=== PATIENT | female | born 1995 | race Caucasian/White ===

== ENCOUNTER 2019-01-12 01:50 | Emergency (ER) | payer OTHER ==
[2019-01-12 01:56] VITALS: BP 126/88; PULSE 125; TEMP 98.5; BMI 28.3
--- NOTE | 2019-01-12 02:09 | PDOC ---
History of Present Illness - General Chief Complaint: Alcohol intoxication Stated Complaint: ETOH Time Seen by Provider: 01/12/19 02:02 History Source: Patient, EMS Exam Limitations: Intoxication - History of Present Illness Initial Comments: 01/12/19 02:06 Gerri is a 24 yo F who presents to the ER via EMS after being found intoxicated by staff at [facility] Pt admits to drinking multiple drinks today, reports at least 6 drinks including "Linda Kekaha, Denise, [place], vodka" Pt denies pain of any kind now Pt denies any traumatic injury tonight (no falls, no fights) PMH: Depression PSH: Denies Meds: Prozac ALL: NKDA Social: (+) ETOH, (+) Marijuanna, FH:non contributory ROS: GENERAL/CONSTITUTIONAL: No: fever, chills HEAD, EYES, EARS, NOSE AND THROAT: No: change in vision CARDIOVASCULAR: No: chest pain RESPIRATORY: No: cough, shortness of breath GASTROINTESTINAL: No: vomiting, abdominal pain or diarrhea GENITOURINARY: No: dysuria MUSCULOSKELETAL: No: back pain, neck pain, joint pain SKIN: No: lesions, pallor, rash or easy bruising. NEUROLOGIC: Yes: intoxication No: headache PE: GENERAL: The patient is in no acute distress, pt is ambulatory to the bathroom with a steady gait, intermittently stumbling, at her friend's bedside HEAD: Normal with no signs of trauma. EYES: PERRLA, EOMI ENT: Ears normal, nares patent, oropharynx clear without exudates. NECK: Normal range of motion, supple without midline tenderness LUNGS: Breath sounds equal, clear to auscultation bilaterally. HEART:Regular rate and rhythm, normal S1 and S2 without murmur, rub or gallop. ABDOMEN: Soft, nontender EXTREMITIES: Normal range of motion NEUROLOGICAL: Cranial nerves II through XII grossly intact. (+) intoxicated MUSCULOSKELETAL: Back non-tender to palpation, no CVA tenderness SKIN: Warm, Dry, normal turgor, no rashes or lesions noted. Past History - Past Medical History Allergies/Adverse Reactions: Allergies Allergy/AdvReac Type Severity Reaction Status Date / Time No Known Allergies Allergy Verified 11/06/15 23:17 Home Medications: Ambulatory Orders Fluoxetine HCl [Prozac] 20 mg PO DAILY 11/06/15 COPD: No Psychiatric Problems: Yes - Immunization History Immunization Up to Date: Yes - Suicide/Smoking/Psychosocial Hx Smoking History: Never smoked Have you smoked in the past 12 months: No Hx Alcohol Use: Yes Drug/Substance Use Hx: Yes (MARIJUANA) Substance Use Type: Alcohol, Marijuana *Physical Exam - Vital Signs Last Vital Signs Temp Pulse Resp BP Pulse Ox 98.5 F 125 H 16 126/88 100 01/12/19 01:51 01/12/19 01:51 01/12/19 01:51 01/12/19 01:51 01/12/19 01:51 Medical Decision Making - Medical Decision Making 01/12/19 02:09 (+) intoxication No trauma No drug use Will continuously monitor for sobriety Will return patient [facility] via [employer] [facility] 01/12/19 02:20 Ambulatory through out the ER 01/12/19 02:58 Pt at the manager front asking if her insurance will be billed Pt re assured that she will have to call registration in the morning or her insurance company on Sunday01/12/19 06:28 Pt awake and alert Ambulatory with a steady gait No stumbling noted Clinical impression: intoxication *DC/Admit/Observation/Transfer Diagnosis at time of Disposition: Alcohol intoxication Qualifiers: Complication of substance-induced condition: uncomplicated Qualified Code(s): F10.920 - Alcohol use, unspecified with intoxication, uncomplicated - Discharge Dispostion Disposition: HOME Condition at time of disposition: Stable Decision to Admit order: No - Referrals - Patient Instructions Printed Discharge Instructions: Alcohol Use Disorder, DI for Alcohol Poisoning Additional Instructions: Gerri, Thank you for coming in to the ER tonight Please avoid drinking excessive amounts of alcohol Please stay hydrated with juice and water - Post Discharge Activity
== END 2019-01-12 06:39 | disposition home or self-care (01) ==
LOC: FER 01:50
DX: F10.920 Alcohol use, unspecified with intoxication, uncomplicated (principal); F99 Mental disorder, not otherwise specified
CPT/HCPCS: 99281-25